=== PATIENT | female | born 1975 | race Caucasian/White ===

== ENCOUNTER 2016-06-11 01:19 | Emergency (ER) | payer BC ==
[~2016-06-11] VITALS: Ht 162.6 cm; Wt 105.1 kg
[~2016-06-11 01:19] MED LIST: Cozaar PO; Epipen Adult Autoinj IM; Proventil,Ventolin H IH; Theragran PO; Vicodin,Norco 5/325 PO; celeBREX PO
[2016-06-11 01:49] LABS: HEMATOCRIT 44.6 % (36.0-46.0); MCH 29.6 PG (29.0-34.0); MCV 89.7 FL (83-99); RBC DIS.WIDTH-CV 12.6 % (11.8-14.6); RBC DIS.WIDTH-SD 41.3 % (39-53); RED BLOOD COUNT 4.97 M/uL (3.80-5.20); WHITE BLOOD COUNT 7.4 K/uL (4.1-10.2)
[2016-06-11 02:00] LABS: CHLORIDE 106 mEq/L (99-109); POTASSIUM 3.7 mEq/L (3.7-5.4); SODIUM 141 mEq/L (136-147)
[2016-06-11 02:03] LABS: ANION GAP 11 MEQ/L (2-14)
[2016-06-11 02:04] LABS: TOTAL BILIRUBIN 0.5 mg/dL (0.0-1.0)
[2016-06-11 02:06] LABS: ALKALINE PHOSPHATASE 52 IU/L (3-129); GFR ESTIMATE (CALCULATED) > 59 mL/min/
[2016-06-11 02:07] LABS: UREA NITROGEN (BUN) 12 mg/dL (9-23)
[2016-06-11 02:15] LABS: QUANTITATIVE HCG < 4.0 MIU/ML
[2016-06-11 02:19] LABS: LIPASE 17 U/L (1.0-51.0)
[2016-06-11 02:42] LABS: MEAN PLAT.VOLUME 12.3 uM^3 (9.5-12.4); PLAT.SUFFICIENCY ADEQUATE; PLATELET COUNT 174 K/uL (156-360)
[2016-06-11 02:45] LABS: GLUCOSE 94 mg/dL (70-99)
[2016-06-11 04:55] LABS: ADD MIUA? NO; BILIRUBIN NEGATIVE; BLOOD NEGATIVE; COLOR YELLOW ((YELLOW)); GLUCOSE (STRIP) NEGATIVE; KETONES 20; LEUKOCYTES NEGATIVE; NITRITE NEGATIVE; PROTEIN (STRIP) NEGATIVE; UCUL ADDED? NO
[2016-06-11 05:05] LABS: SPECIFIC GRAVITY 1.056 (1.000-1.030)
[2016-06-11] MEDS ORDERED: PEPCID20 MG PO (05:05)
[2016-06-11] MEDS ORDERED: BENTYL20 MG PO (05:05)
[2016-06-11 05:21] VITALS: BP 108/67
== END 2016-06-11 06:05 | disposition home or self-care (01) ==
LOC: EME 01:19
DX: R10.32 Left lower quadrant pain (principal); J45.909 Unspecified asthma, uncomplicated; I10 Essential (primary) hypertension; Z87.891 Personal history of nicotine dependence
CPT/HCPCS: 74177; 80053; 81003; 83690; 84702; 85027; 99281; 99284; J2270; J2405; J7030; S0028

== ENCOUNTER 2016-12-25 17:51 | Emergency (ER) | payer BC ==
[~2016-12-25] VITALS: Ht 160 cm; Wt 102.8 kg
[~2016-12-25 17:51] MED LIST changes: +BENTYL20 MG PO; +PEPCID20 MG PO
[2016-12-25 19:49] LABS: MCH 29.9 PG (29.0-34.0); MCHC 32.5 G/DL (30.0-36.0); MCV 92.1 FL (83-99); MEAN PLAT.VOLUME 12.4 uM^3 (9.5-12.4); PLATELET COUNT 193 K/uL (156-360); RBC DIS.WIDTH-CV 13.2 % (11.8-14.6); RBC DIS.WIDTH-SD 44.9 % (39-53); RED BLOOD COUNT 4.78 M/uL (3.80-5.20); WHITE BLOOD COUNT 7.6 K/uL (4.1-10.2)
[2016-12-25 19:52] LABS: CHLORIDE 108 mEq/L (99-109); POTASSIUM 4.2 mEq/L (3.7-5.4); SODIUM 141 mEq/L (136-147)
[2016-12-25 19:54] LABS: GLUCOSE 96 mg/dL (70-99)
[2016-12-25 19:55] LABS: ANION GAP 10 MEQ/L (2-14)
[2016-12-25 19:57] LABS: GFR ESTIMATE (CALCULATED) > 59 mL/min/; SERUM ETHYL ALCOHOL < 10 mg/dL
[2016-12-25 19:58] LABS: UREA NITROGEN (BUN) 10 mg/dL (9-23)
[2016-12-26 06:16] LABS: AMPHETAMINE NEGATIVE (500 ng/mL); BARBITURATES NEGATIVE (200 ng/mL); BENZODIAZEPINES NEGATIVE (150 ng/mL); COCAINE NEGATIVE (150 ng/mL); INTERNAL CONTROLS VALID? YES; METHADONE NEGATIVE (200 ng/mL); METHAMPHETAMINE NEGATIVE (500 ng/mL); OPIATES (MORPHINE) NEGATIVE (100 ng/mL); OXYCODONE NEGATIVE (100 ng/mL); PHENCYCLIDINE NEGATIVE (25 ng/mL); PROPOXYPHENE NEGATIVE (300 ng/mL); THC CANNABINOIDS NEGATIVE (50 ng/mL); TRICYCLIC ANTIDEPRESSANTS NEGATIVE (300 ng/mL)
[2016-12-26] MEDS ORDERED: OMEPRAZOLE40 M1 PO (10:09)
[2016-12-26] MEDS ORDERED: LORATADINE10 M3 PO (10:10)
[2016-12-26] MEDS ORDERED: NASACORT10.8 ML BOTH NARES (10:10)
[2016-12-26 16:40] VITALS: BP 126/79
== END 2016-12-26 16:50 ==
LOC: EME 17:51
DX: F33.2 Major depressive disorder, recurrent severe without psychotic features (principal); R45.851 Suicidal ideations; J45.909 Unspecified asthma, uncomplicated; I10 Essential (primary) hypertension; Z87.891 Personal history of nicotine dependence; Z88.0 Allergy status to penicillin; Z88.8 Allergy status to other drugs, medicaments and biological substances
CPT/HCPCS: 80048; 85027; 90837; 99281; 99285; G0480